=== PATIENT | male | born 1990 | race Caucasian/White ===

== ENCOUNTER 2022-12-09 15:45 | Outpatient (CLI) | payer OTHER, SELFPAY ==
--- NOTE | ~2022-12-09 | XR_ITS ---
XR sinus min 3V DATE: 12/09/2022 16:06 INDICATION: Right maxillary pressure TECHNIQUE: shalini Cox, submental vertical, lateral views COMPARISON: None FINDINGS: The paranasal sinuses and mastoid air cells appear normally developed and aerated. Normal sella turcica. IMPRESSION: No radiographic evidence of sinusitis Reviewed, dictated and finalized at location A.
== END 2022-12-09 15:46 | disposition home or self-care (01) ==
LOC: CHSIMG 15:50
PROVIDERS: PCP Internal Medicine; Visit Provider Internal Medicine
DX: J32.0 Chronic maxillary sinusitis (principal)
CPT/HCPCS: 70220

== ENCOUNTER 2022-12-10 14:01 | Outpatient (CLI) | payer OTHER, SELFPAY ==
[2022-12-10 14:17] LABS: Hematocrit 40.8 % (40.0-54.0); Hemoglobin 13.9 g/dL (14.0-18.0); Mean Corpuscular HGB Conc 34.1 g/dL (32.0-36.0); Mean Corpuscular Hemoglobin 29.3 pg (27.0-31.0); Mean Corpuscular Volume 86.1 fL (78.0-102.0); Mean Platelet Volume 10.5 fl (8.7-11.0); Platelet Count Result 202 K/mm3 (150-420); Red Blood Count 4.74 M/mm3 (4.70-6.10); Red Cell Distribution Width 11.9 % (11.6-14.4); White Blood Count 3.8 K/mm3 (4.8-10.8)
[2022-12-10 14:18] LABS: Appearance Urine Clear (Clear); Bilirubin Urine Negative (Negative); Blood Urine Negative (Negative); Color Urine Yellow (Yellow); Glucose Urine UA Negative (Negative); Ketones Urine Negative (Negative); Leukocyte Esterase Ur Negative (Negative); Nitrate Urine Negative (Negative); Protein Urine Negative (Negative); Specific Grav Ur 1.025 (1.010-1.020); Urobilinogen Urine 0.2 mg/dL (0.2-1.0)
[2022-12-10 14:28] LABS: Add Urine Microscopic? NO
[2022-12-10 15:00] LABS: Band Neutrophils Percent 0 % (0-6); Basophils Absolute Manual 0.03 K/mm3 (0-0.1); Basophils Percent Manual 1 % (0-1); Eosinophils Percent Manual 0 % (1-6); Lymphocytes Absolute Manual 1.78 K/mm3 (1.1-4.5); Lymphocytes Percent Manual 47 % (18-44); Monocytes Absolute Manual 0.22 K/mm3 (0.1-0.90); Monocytes Percent Manual 6 % (3-9); Neutrophils Absolute Manual 1.74 K/mm3 (1.3-6.7); Neutrophils Percent Manual 46 % (46-73); Platelet Estimate Adequate (Adequate); Total Cells Counted 100
[2022-12-10 15:07] LABS: Alanine Aminotransferase 55 U/L (16-63); Albumin Level 4.6 g/dL (3.4-5.0); Alkaline Phosphatase 51 U/L (46-116); Anion Gap 7 mmol/L (8-16); Aspartate Amino Transferase 24 U/L (15-37); Bilirubin,Total 0.5 mg/dL (0.00-1.00); Blood Urea Nitrogen 10 mg/dL (7-18); Calcium 8.9 mg/dL (8.5-10.1); Carbon Dioxide 32 mmol/L (21-32); Chloride 104 mmol/L (98-108); Cholesterol 209 mg/dL (0-200); Estimated Glomerular Filt Rate > 60; Glucose 93 mg/dL (70-99); HDL Direct 44 mg/dL (40-60); LDL Cholesterol Calculated 145 mg/dL (<130); Osmolality Calculated 295 mOsm/kg (285-295); Potassium 4.2 mmol/L (3.5-5.1); Sodium 143 mmol/L (136-145); Thyroid Stimulating Hormone 1.24 uIU/mL (0.36-3.74); Total Protein 7.1 g/dL (6.4-8.2); Triglycerides 99 mg/dL (0-150)
[2022-12-10 15:08] LABS: CRP < 0.5 mg/dL (0.0-0.9)
== END 2022-12-10 14:02 | disposition home or self-care (01) ==
LOC: CHSLAB 14:04
PROVIDERS: PCP Internal Medicine; Visit Provider Internal Medicine
DX: Z00.00 Encounter for general adult medical examination without abnormal findings (principal); J32.0 Chronic maxillary sinusitis
CPT/HCPCS: 36415; 80053; 80061; 81003; 84443; 85025; 86140

== ENCOUNTER 2023-01-15 08:12 | Outpatient (CLI) | payer OTHER, SELFPAY ==
--- NOTE | ~2023-01-15 | MR_ITS ---
EXAMINATION: MR brain/brain stem wo/w con DATE: 01/15/2023 09:47 INDICATION: Right facial pain for 3 months. TECHNIQUE: Magnetic resonance imaging (MRI) of the brain and brainstem was performed without and with 15 mL MultiHance intravenous contrast. COMPARISON: Maxillofacial CT 08/10/2013 FINDINGS: There is no intracranial hemorrhage, acute infarction, or abnormal intracranial mass lesion . The ventricles are normal in size. An artery abuts the cisternal segment of the right trigeminal ne rve. No involvement of the root entry zone and no mass effect. The paranasal sinuses are clear. The o rbits are normal. The mastoid air cells are normal. IMPRESSION: 1. An artery abuts the cisternal segment of the right trigeminal nerve. No involvement of the root en try zone and no mass effect. This finding is indeterminate for vascular loop compression syndrome. Reviewed, dictated and finalized at location E. IMPRESSION: 1. An artery abuts the cisternal segment of the right trigeminal nerve. No invo lvement of the root entry zone and no mass effect. This finding is indeterminat e for vascular loop compression syndrome.
== END 2023-01-15 08:13 | disposition home or self-care (01) ==
LOC: CHSIMG 08:14
PROVIDERS: PCP Internal Medicine; Visit Provider Internal Medicine
DX: G50.1 Atypical facial pain (principal)
CPT/HCPCS: 70553; A9577

== ENCOUNTER 2024-11-08 14:20 | Outpatient (CLI) | payer BC, SELFPAY ==
--- NOTE | ~2024-11-08 | XR_ITS ---
XR wrist RT min 3V Ordering provider: Ty Joshua MD History: . TOP OF RT HAND AND WRIST PAIN MOSTLY 4-5TH DIGITS . Comparison: None. FINDINGS: BONES: Fracture at the base of the proximal epiphysis of the fifth metacarpal bone with displacement of the fragments. JOINT SPACES: Normal. SOFT TISSUES: Normal. IMPRESSION: Fracture of the proximal metaphysis of the fifth metacarpal bone with displacement of the bony fragme nt. Reviewed, dictated and finalized at location A. AL SHELTER MANAGER IMPRESSION: Fracture of the proximal metaphysis of the fifth metacarpal bone with displacem ent of the bony fragment.
--- NOTE | ~2024-11-08 | XR_ITS ---
XR hand RT min 3V Ordering provider: Ty Joshua MD History: . TOP OF RT HAND AND WRIST PAIN MOSTLY 4-5TH DIGITS . Comparison: None. FINDINGS: BONES: Fracture at the base of the fifth metacarpal bone with displacement of the bony fragment. JOINT SPACES: Normal. SOFT TISSUES: Normal. IMPRESSION: Fracture at the base of the proximal epiphysis of the fifth metacarpal bone with displacement Reviewed, dictated and finalized at location A. TECHNOLOGIST IMPRESSION: Fracture at the base of the proximal epiphysis of the fifth metacarpal bone wit h displacement
--- OUTSIDE RECORDS SUMMARY | 2024-11-08 16:39 | XMS_ITS | Clinical Summary ---
Author Organization [facility] Address [address] [place] [address] Care Team Providers Care Seam Sewer Name Role Phone Unavailable Primary Care Provider Unavailabl e Social History Tobacco Use Types Packs/Day Years Used Date Smoking Tobacco: Never Assessed Sex and Gender Information Value Date Recorded Sex Assigned at Not on file Legal Sex Male 6:02 PM CDT Gender Identity Not on file Sexual Orientation Not on file Plan of Treatment Health Maintenance Due Date Last Done Comments Annual Physical 1993 Hepatitis C 2008 COVID-19 Vaccine ( season) 2024 Influenza Adult (#1) 2024 DTaP, Tdap and Td Vaccines (7 - Td or Tdap) 07/04/2032 07/04/2022, 04/07/2005, 03/28/1996, Additional history exists Hepatitis B Vaccines Completed 06/02/2000, 12/19/1999, 11/14/1999 Meningococcal Vaccine Aged Out 10/31/2008 No leigh hardy eligible based on patient's age to complete this topic HPV Vaccines Aged Out No longer eligi ble based on patient's age to complete this topic Meningococcal B Vaccine Aged Out No l onger eligible based on patient's age to complete this topic Pneumococcal Vaccine: Pediatrics (0 to 5 Years) and At-Risk Patients (6 to 64 Years) Aged Out No longer eligible based on patient's age to complete this topic RSV Immunizations Under 20 Months Aged Out No longer eligible based on patient's age to complete this topic Insurance [facility]
--- OUTSIDE RECORDS SUMMARY | 2024-11-08 16:39 | XMS_ITS | CONTINUITY OF CARE DOCUMENT ---
Author Name anitra ayoub Address Unknown Organization [facility] Address [address] [address] [facility] [address] [place] [address] Phone [phone] Care Team Providers Care Prop Attendant Name Role Phone Real Newby MD Unavailable [phone] RUTH ALEXANDRE MD Unavailable PROBLEMS Condition Status Date Provider Notes Family History Coronary Hear t Disease female < 65: active ? Real Newby MD Chest pain, atypical active Real Newby MD HTN essential active Real Newby MD Asthma active Real Newby MD Anxiety active Real Newby MD ENCOUNTERS Date Type Provider Location Encounter Diag nosis - In-person encounter Office Visit Real Newby MD [place] [facility] - In-person encounter Office Visit Real [place] [facility] Family History Coron maximilian Heart Disease female < 65:Chest pain, atypicalHTN essentialAsthmaAnxiety VITAL SIGNS Date Observation Value Provider blood pressure, diastolic 74 mm[Hg] Us blas Newby MD blood pressure, systolic 110 mm[Hg] Darlene Newby MD pulse rate 60 /min Real Newby MD oxygen saturation, oximetry 99 % Real Newby MD respiratory rate E&M 16 /min Real mckay MD Body Mass Index (Ratio) 22.24 kg/m2 Matthias Newby MD weight E&M 155 [lb_av] Real Newby MD blood pressure, diastolic 68 mm[Hg] Us blas Newby MD blood pressure, systolic 104 mm[Hg] Darlene Newby MD pulse rate 64 /min Real Newby MD oxygen saturation, oximetry 99 % Real Newby MD respiratory rate E&M 16 /min Real mckay MD Body Mass Index (Ratio) 22.24 kg/m2 Matthias Newby MD weight E&M 155 [lb_av] Real Newby MD height E&M 70 [in_i] Real Newby MD ALLERGIES No Known Drug Allergies HISTORY OF MEDICATION USE Medication Status Instructions Dates Provider Indications Com ments EQL IBUPROFEN TABLET active Real Newby MD PROAIR HFA AEROSOL SOLUTION active Real Newby MD FLONASE ALLERGY RELIEF SUSPENSION active Real Newby MD MONTELUKAST SODIUM 10 MG ORAL TABLET active Real Newby MD ESCITALOPRAM OXALATE 5 MG ORAL TABLET active Real Newby MD COZAAR 50 MG ORAL TABLET active Real Newby MD SOCIAL HISTORY Date Observation Value Provider alcohol use no Real Newby MD drug use no Real Newby MD smoking status Never smoker Real Newby MD social history reviewed E&M reviewed - no changes required Real Newby MD alcohol use no Real Newby MD social history reviewed E&M reviewed - no changes required Real Newby MD social history E&M Occupation: Maintenance/self-employed/lawn care P atient has never smoked. A lcohol Use - no R egular Exercise - yes D rug Use - Occasional marijuana Smoking History: P atient has never smoked. Real Newyb MD drug use no Real Newby MD smoking status Never smoker Real Newby MD FAMILY HISTORY Family Member Condition Mother Family History of Co ronary Artery Disease: Mother Family History Coron maximilian Heart Disease female < 65: INSURANCE PROVIDERS Payer name Policy type / Coverage type [place] [employer] HEALTHCARE AND FAMILY SERVICES Medicaid 1 [id number] TREATMENT PLAN Date Name Performer Cardiology: B P today: 110/74 P rior BP: 104/68 (07/30/2015) Real Newby MD New Patient:Will do routine stre ss test Real Newby MD New Patient: B P today: 104/68 Real Newby MD Date Name COMPREHENSIVE METABO LIC PANEL W/EGFR LIPID PANEL STR - Routine HISTORY OF PROCEDURES Procedure Date Procedure Name Provider Procedure Notes S tatus SNOMED-CT: 421218400 380010 Current Medications Documented Real Newby MD completed SNOMED-CT: 81579538 Physical Exam, Performed: Pulse Exam of Foot Real Newby MD completed SNOMED-CT: 076931324 301810 Current Medications Documented Real Newby MD completed SNOMED-CT: 93863296 Physical Exam, Performed: Pulse Exam of Foot Real Newby MD completed
== END 2024-11-08 14:21 | disposition home or self-care (01) ==
LOC: CHSIMG 14:23
PROVIDERS: PCP Internal Medicine; Visit Provider Internal Medicine
DX: S62.396A Other fracture of fifth metacarpal bone, right hand, initial encounter for closed fracture (principal)
CPT/HCPCS: 73110; 73130

== ENCOUNTER 2024-12-07 11:56 | Outpatient (CLI) | payer BC, SELFPAY ==
--- NOTE | ~2024-12-07 | XR_ITS ---
Right Hand Technique: PA, oblique, and lateral views were obtained. Clinical History: Fifth metacarpal fracture COMPARISON: 11/08/2024 Findings: Displaced fracture the base of the fifth metacarpal with intra-articular extension is simil ar in alignment to prior exam. Overall, no significant interval change.. Joint spaces are preserved. Soft tissues are unremarkable. Impression: No significant interval change in intra-articular displaced fracture at the base the fifth metacarpal . Reviewed, dictated and finalized at location . Impression: No significant interval change in intra-articular displaced fracture at the bas e the fifth metacarpal.
--- OUTSIDE RECORDS SUMMARY | 2024-12-07 13:24 | XMS_ITS | Clinical Summary ---
Author Organization [facility] Address [address] [place] [address] Care Team Providers Care Dairy Farmworker Name Role Phone Unavailable Primary Care Provider [...] patient's age to complete this topic Insurance [facility]
--- OUTSIDE RECORDS SUMMARY | 2024-12-07 13:24 | XMS_ITS | Referral Summary ---
Author Organization [facility] [address] [facility] Address [address] [place] [address] Care Team Providers Care Rolled Ham Lacer Name Role Phone Ty Joshua MD Primary Care Provider [phone] Allergies No known active allergies Medications escitalopram (LEXAPRO) 5 mg tablet Take 1 tablet (5 mg total) by mouth daily 5 Active losartan (Cozaar) 50 mg tablet Take 1 tablet (50 mg total) by mouth daily 5 Active gabapentin (NEURONTIN) 100 mg capsuleIndicatio ns:Facial pain Take 1 capsule (100 mg total) by mouth 3 (three) times a day Active amitriptyline (ELAVIL) 25 mg tabletIndication s:Chronic migraine without aura without status migrainosus, not intractable Take one tablet po qhs for one week, then two tablets po qhs 60 tablet 3 3 Active SUMAtriptan (IMITREX) 100 mg tabletIndication s:Migraine Take one tabet po q2h prn as soon as feel headache is coming. No more than 2 tablets in 24 hours. 9 tablet 3 3 Active Active Problems Problem Noted Date Diagnosed Date Facial pain 06/17/2023 Chronic migraine without aur a without status migrainosus, not intractable 06/17/2023 Abnormal MRI 06/17/2023 Social History Tobacco Use Types Packs/Day Years Used Date Smoking Tobacco: Never Assessed Sex and Gender Information Value Date Recorded Sex Assigned at Not on file Legal Sex Male 12:21 PM CDT Gender Identity Not on file Sexual Orientation Not on file Last Filed Vital Signs Vital Sign Reading Time Taken Comments Blood Pressure 132/89 06/17/2023 2:26 PM CDT Pulse 66 06/17/2023 2:26 PM CDT Temperature - - Respiratory Rate 18 06/17/2023 2:26 PM CDT Oxygen Saturation 97% 06/17/2023 2:26 PM CDT Inhaled Oxygen Concentration - - Weight 79.8 kg (176 lb) 06/17/2023 2:26 PM CDT Height 177.8 cm (5' 10 ) 06/17/2023 2:26 PM CDT Body Mass Index 25.25 06/17/2023 2:26 PM CDT Plan of Treatment Not on file Insurance [employer] [facility] [place] [id number] Care Teams Rolled Ham Lacer Relationship Specialty Start Date End Date Ty Joshua MD PCP - General Internal Medicine 01/30/23
--- OUTSIDE RECORDS SUMMARY | 2024-12-07 13:24 | XMS_ITS | CONTINUITY OF CARE DOCUMENT ---
Author Name anitra ayoub Address Unknown Organization [facility] Address [address] [place] [address] Phone [phone] Care Team Providers Care Instructional Manager Name Role Phone Real Newby MD Unavailable RUTH ALEXANDRE MD Unavailable PROBLEMS Condition Status Date Provider Notes Anxiety active Real Newby MD Asthma active Real Newby MD HTN essential active Real Nweby MD Chest pain, atypical active Real Newby MD Family History Coronary Hear t Disease female < 65: active ? Real Newby MD ENCOUNTERS Date Type Provider Location Encounter Diag nosis - In-person encounter Office Visit Real Newby MD [place] [facility] - In-person encounter Office Visit Real Newby MD [place] [facility] Family History Coron maximilian Heart Disease [...] History: P atient has never smoked. Real Newby MD drug use no Real Newby MD smoking status Never smoker Real Newby MD FAMILY HISTORY Family Member Condition Mother Family History of Co ronary Artery Disease: Mother Family History Coron maximilian Heart Disease female < 65: INSURANCE PROVIDERS Payer name Policy type / Coverage type [place] [employer] HEALTHCARE AND FAMILY SERVICES Medicaid 1 [id number] TREATMENT PLAN Date Name Performer Cardiology: B P today: 110/74 P rior BP: 104/68 (07/30/2015) Real Newby MD New Patient:Will do routine stre ss test Real Newby MD New Patient: B P today: 104/68 Real Newby MD Date Name COMPREHENSIVE METABO LIC PANEL W/EGFR LIPID PANEL STR - Routine HISTORY OF PROCEDURES Procedure Date Procedure Name Provider Procedure Notes S tatus SNOMED-CT: 217006271 906251 Current Medications Documented Real Newby MD completed SNOMED-CT: 81130162 Physical Exam, Performed: Pulse Exam of Foot Real Newby MD completed SNOMED-CT: 825657869 898508 Current Medications Documented Real Newby MD completed SNOMED-CT: 82364786 Physical Exam, Performed: Pulse Exam of Foot Real Newby MD completed
--- OUTSIDE RECORDS SUMMARY | 2024-12-07 13:24 | XMS_ITS | Clinical Summary ---
Author Organization [facility] [address] [facility] Address [address] [place] [address] Care Team Providers Care Product Picker Name Role Phone Ty Joshua MD Primary Care Provider [phone] Allergies No known active allergies Medications escitalopram [...] on file Sexual Orientation Not on file Obstetrics History Last Filed Vital Signs Vital Sign Reading [...] 06/17/2023 2:26 PM CDT Plan of Treatment Health Maintenance Due Date Last Done Comments Depression Screening 1990 Hepatitis C Screening 1990 Varicella Vaccines (2 of 2 - 2-dose childhood series) 07/04/1996 04/11/1996 Regular Well Visit/Exam 18-64 2008 Pneumococcal vaccine <65 (1 of 2 - PCV) 2009 Influenza Vaccine (Season Ended) 2025 DTaP/Tdap/Td Vaccine (7 - Td or Tdap) 07/04/2032 07/04/2022, 04/07/2005, 03/28/1996, Additional history exists Hepatitis B Screening Completed 06/02/2000 , 12/19/1999, 11/14/1999 HPV Vaccines Aged Out No longer eligi ble based on patient's age to complete this topic Insurance [employer] [id number] [address] [id number] Care Teams Product Picker Relationship Specialty Start Date End Date Ty Joshua MD PCP - General Internal Medicine 01/30/23
== END 2024-12-07 11:57 | disposition home or self-care (01) ==
LOC: CHSIMG 11:58
PROVIDERS: PCP Internal Medicine; Visit Provider Internal Medicine
DX: S62.306A Unspecified fracture of fifth metacarpal bone, right hand, initial encounter for closed fracture (principal)
CPT/HCPCS: 73130